=== PATIENT | female | born 1985 | race Caucasian/White ===

== ENCOUNTER 2021-11-08 17:17 | Emergency (ER) | payer OTHER, MEDICAID ==
[~2021-11-08] VITALS: Ht 167.6 cm; Wt 88.5 kg
[2021-11-08 17:17] VITALS: BP_SYST 134
--- NOTE | 2021-11-08 17:17 | NUR ---
Patient placed on suicide precautions. Patient placed in room within close proximity to nurses' station for closer observation and monitoring. All clothing removed, placed in hospital gown. Metal detector wand used to further screen patient of any potential hazardous belongings. All belongings inventoried, placed in bags and removed from room. Cabinets locked. BP and pulse oximeter cords, and machining department supervisor leads removed.
--- NOTE | 2021-11-08 17:17 | NUR ---
Patient to ER bed 05 to gown for evaluation. Side rails up. Report given to HITESH VILLARREAL
--- NOTE | 2021-11-08 17:25 | NUR ---
Dr. Perea at bedside to assess.
--- NOTE | 2021-11-08 17:46 | NUR ---
EKG done with results given to Dr. Perea for interpretation.
--- NOTE | 2021-11-08 17:50 | NUR ---
Labs drawn and sent to lab for analysis.
--- NOTE | 2021-11-08 17:51 | NUR ---
Note vy in ED - 11/08/21 at 1902 by [email or web address] Patient placed on suicide precautions. Patient placed in room within close proximity to nurses' station for closer observation and monitoring. All clothing removed, placed in hospital gown. Metal detector wand used to further screen patient of any potential hazardous belongings. All belongings inventoried, placed in bags and removed from room. Cabinets locked. BP and pulse oximeter cords, and cardiac monitor technician leads removed.
--- NOTE | 2021-11-08 17:58 | NUR ---
Pt to CT scan by lesvia.
[2021-11-08 18:02] LABS: BASOPHILS # (AUTO) 0.1 K/uL (0.0-0.2); BASOPHILS % (AUTO) 0.6 % (0.0-2.0); EOSINOPHILS % (AUTO) 0.4 % (0.0-4.0); HEMATOCRIT 40.6 % (36-48); HEMOGLOBIN 13.4 g/dL (12.0-16.0); LYMPHOCYTES % (AUTO) 18.3 % (20.5-51.5); MEAN CORPUSCULAR HEMOGLOBIN 30 pg (27-31); MEAN CORPUSCULAR HGB CONC 33 % (32-36); MEAN CORPUSCULAR VOLUME 89 fL (79.0-98.0); MONOCYTES # (AUTO) 0.9 K/uL (0.0-1.0); MONOCYTES % (AUTO) 7.9 % (1.7-9.3); NEUTROPHILS % (AUTO) 72.8 % (40.0-70.0); PLATELET COUNT (AUTO) 322 K/uL (130-430); RED BLOOD CELL COUNT(AUTO) 4.55 MIL/uL (4.2-6.2); RED CELL DISTRIBUTION WIDTH 14.4 % (9.0-15.0); WHITE BLOOD COUNT (AUTO) 11.1 K/uL (4.8-10.8)
--- NOTE | 2021-11-08 18:06 | NUR ---
Pt back from radiology department.
[2021-11-08 18:14] LABS: ANION GAP 7 (5-15); CALCIUM 8.1 mg/dL (8.4-11.0); CHLORIDE 102 mmol/L (98-107); CREATININE 0.94 mg/dL (0.55-1.30); GLUCOSE 107 mg/dL (70-99); POTASSIUM 3.8 mmol/L (3.5-5.1); SODIUM SERUM 134 mmol/L (136-145); UREA NITROGEN, BLOOD 12 mg/dL (8-21)
[2021-11-08 18:17] LABS: GFR AFRICAN AMERICAN 88 mL/min (>90)
--- NOTE | 2021-11-08 18:20 | NUR ---
CT scan complete.
[2021-11-08 18:24] LABS: ALANINE AMINOTRANSFERASE 61 U/L (12-78); ALBUMIN 3.1 g/dL (3.4-4.8); ASPARTATE AMINOTRANSFERASE 56 U/L (10-37); TOTAL BILIRUBIN 0.2 mg/dL (0.0-1.0)
[2021-11-08 18:27] LABS: ACETAMINOPHEN < 1 ug/mL (1-30)
[2021-11-08 18:33] LABS: ALCOHOL, BLOOD < 3 mg/dL (<10)
--- NOTE | 2021-11-08 18:50 | NUR ---
Covid swab obtained and sent to lab for analysis.
--- NOTE | 2021-11-08 18:55 | NUR ---
Urine cup provided for sample. Pt stated, "NO!" Cup left at the bedside.
--- NOTE | 2021-11-08 19:16 | NUR ---
Report given to HITESH Barclay who will assume care.
--- NOTE | 2021-11-08 19:19 | NUR ---
Patient medically cleared at this time.
--- NOTE | 2021-11-08 19:30 | NUR ---
PT SITTING ON GURNEY, IN NAD. RESP EVEN AND UNLABORED,ON RA @99%. PT ALERT TO NAME ONLY, DISORIETED TO SITUATION OR PLACE. PT MUMBLING WORDS WITH INTERMEDIATE GIGGLING. [facility] CON[facility]. OFFERED DINNER AND FLUIDS, TRAY ORDERED FOR PT. ALSO OFFERED PT IF SHE NEEDED TO URINATE, URINE CUP PROVIDED. URINE COLLECTED. STEADY GAIT. DENIES ANY SI/HI, DENIES ANY PAIN AT THIS TIME. SAFETY PRECAUTIONS IN PLACE, WILL CONT TO MONITOR CLOSELY.
[2021-11-08 19:44] LABS: BARBITURATE, URINE NEGATIVE (NEG <=200); BENZODIAZEPINE, URINE NEGATIVE (NEG <=150); CANNABINOID, URINE NEGATIVE (NEG <=50); COCAINE, URINE NEGATIVE (NEG <=150); METHAMPHETAMINES SCREEN,URINE NEGATIVE (NEG <=500); OPIATE, URINE NEGATIVE (NEG <=100); PHENCYCLIDINE SCREEN,URINE NEGATIVE (NEG <=25); UR TRICYCLIC ANTIDEPRESSANTS NEGATIVE (NEG <=300); URINE AMPHETAMINE NEGATIVE (NEG <=500); URINE METHADONE NEGATIVE (NEG <=200); URINE OXYCODONE SCREEN NEGATIVE (NEG <=100); URINE PROPOXYPHENE SCREEN NEGATIVE (NEG <=300)
--- NOTE | 2021-11-08 20:54 | NUR ---
REPORT GIVEN TO ABELARDO PROCTOR-REGISTRY
[2021-11-08] MEDS ORDERED: ALPRAZolam 0.25 MG TABLET PO ONE (21:30)
--- NOTE | 2021-11-08 22:09 | NUR ---
PATIENT MOVED TO HOSPITAL BED FOR COMFORT
--- NOTE | 2021-11-09 04:13 | NUR ---
pt has been relaxing and cooperative in her room 5 of the er. pt has no c/o pain adn no resp distress, pt has been in bed sleeping and observing the er at times . care reumed .
--- NOTE | 2021-11-09 04:23 | NUR ---
i been assessing pt every 15min since the start of my shift and no changes. no suicidal attempts adn no c/o pain adn no resp distress. pt has been sleping at times and cooperative when awake. care resumed
--- NOTE | 2021-11-09 06:57 | NUR ---
pt remianed calm and cooperative throughout my care, no resp distress and no c/o pain, every 15min pt checks done and no issues. care resumed adn report given to dayshidanette
--- NOTE | 2021-11-09 07:20 | NUR ---
ASSUMED CARE OF PATIENT. PER REPORT PATIENT WAS ASLEEP ALL NIGHT. PENDING PLACEMENT TO PSYCH FACILITY. PT ASLEEP AT THIS TIME. ATTEMPTED TO TALK TO PATIENT BUT STAYED SILENT. NAD NOTED.
--- NOTE | 2021-11-09 08:22 | NUR ---
Spoke to marcelina martinez and gave report to facility regarding patient. stated they will review chart and call us back.
--- NOTE | 2021-11-09 09:45 | NUR ---
SPOKE TO [facility]. ACCEPTED PATIENT TO UNIT 2A. DR. JEFFERSON. TRANSPORTATION WILL BE STARTED TO HAVE PATIENT MOVED.
--- NOTE | 2021-11-09 10:14 | NUR ---
Pt is resting in bed and is cooperative.
--- NOTE | 2021-11-09 11:30 | NUR ---
Pt resting in bed and cooperative, no resp distress and no c/o pain.
--- NOTE | 2021-11-09 12:47 | NUR ---
Assisted patient to restroom and supervised. Pt is now resting in bed with no signs of resp distress and no c/o pain.
--- NOTE | 2021-11-09 13:27 | NUR ---
Pt resting in bed with eyes closed. No signs of resp distress and no c/o pain.
--- NOTE | 2021-11-09 14:14 | NUR ---
Patient to be transferred to [facility]. Is being transferred due to higher level of care. Receiving facility has accepting physician and available space. ER physician has signed transfer form. Patient or responsible democrat has agreed to transfer and signed form. Patient belongings inventoried and will be sent with patient. Copy of nursing notes, lab reports, EKG, Physicians Orders and X-rays to be sent with patient. Report called to RN at receiving facility. Receiving physician is Sandy . ambulance service has been called for transfer. ETA is 1300.
[2021-11-09 14:15] VITALS: BP_SYST 122
== END 2021-11-09 14:15 ==
LOC: SED 17:17
DX: F29 Unspecified psychosis not due to a substance or known physiological condition (principal); R41.82 Altered mental status, unspecified; Z20.822 Contact with and (suspected) exposure to COVID-19
CPT/HCPCS: 36415; 70450; 76376; 80053; 80307; 82550; 84703; 85025; 87426; 93005; 99285; G0480; G0481; G0482